=== PATIENT | female | born 1995 | race Caucasian/White ===

== ENCOUNTER 2020-08-11 20:54 | Emergency (ER) | payer OTHER ==
[~2020-08-11] VITALS: Ht 167.6 cm; Wt 74.8 kg
[2020-08-11] MEDS ORDERED: PROZAC20 MG PO (21:12)
[2020-08-11] MEDS ORDERED: BACTRIM DS TAB1 EAC1 PO (21:12)
[2020-08-11 21:34] LABS: URINE BLOOD 2+ (Negative); URINE CLARITY SL CLOUDY; URINE COLOR YELLOW; URINE GLUCOSE-RANDOM NEGATIVE (Negative); URINE KETONES NEGATIVE (Negative); URINE LEUKOCYTES 3+ (Negative); URINE NITRITE NEGATIVE (Negative); URINE NITRITE-REFLEX NEGATIVE (Negative); URINE PROTEIN 1+ (Negative)
[2020-08-11 21:37] LABS: URINE BILIRUBIN 1+ (Negative); URINE LEUKOCYTES-REFLEX 3+ (Negative)
[2020-08-11 21:38] LABS: ICTOTEST (BILI CONFIRMATORY) Negative (Negative)
[2020-08-11 21:45] LABS: CASTS None Seen /LPF (None Seen); CRYSTALS None Seen /LPF (None Seen); SQUAMOUS 4-10 Moderate /LPF (0-3); URINE RBC 3-10 Few /HPF (0-2); URINE WBC-REFLEX >25 Many /HPF (0-5)
[2020-08-11 21:46] LABS: HEMATOCRIT 35.2 % (37.0-47.0); HEMOGLOBIN 12.2 gm/dL (12.0-15.0); MCH 31.9 pg (26.0-34.0); MCHC 34.6 g/dL (28.0-37.0); MCV 92.2 fL (80.0-100.0); NUCLEATED RBCS 0 /100WBC; PLATELET COUNT* 200 thou/uL (150-400); RBC 3.82 mil/uL (4.20-5.00); WBC 9.5 thou/uL (4.0-11.0)
[2020-08-11 21:52] LABS: URINE WBC >25 Many /HPF (0-5)
[2020-08-11 21:55] LABS: CALCIUM 8.6 mg/dL (8.5-10.1); POTASSIUM 3.7 mmol/L (3.5-5.1)
[2020-08-11 21:58] LABS: ALBUMIN 3.3 g/dL (3.4-5.0); TOTAL BILIRUBIN 0.4 mg/dL (<0.1-1.0); TOTAL PROTEIN 7.3 g/dL (6.4-8.2)
[2020-08-11 22:12] LABS: BACTERIA-REFLEX None Seen /HPF (None Seen)
[2020-08-11 22:47] LABS: ABSOLUTE LYMPHOCYTES 0.3 thou/uL (0.8-5.3); ABSOLUTE MONOCYTES 0.7 thou/uL (0.0-1.2); ABSOLUTE NEUTROPHILS 8.6 thou/uL (1.6-8.1); PLATELET ESTIMATE ADEQUATE
[2020-08-11] MEDS ORDERED: ZOFRAN ODT4 MG PO (23:53)
[2020-08-11] MEDS ORDERED: HYDROCODON-ACE1 EAC8 PO (23:53)
[2020-08-12 00:20] VITALS: BP 111/60
== END 2020-08-12 00:20 | disposition home or self-care (01) ==
LOC: M.ERS 20:54
PROVIDERS: Physician Assistant
DX: N10 Acute pyelonephritis (principal); R10.84 Generalized abdominal pain; Z79.899 Other long term (current) drug therapy